=== PATIENT | female | born 1960 | race Caucasian/White ===

== ENCOUNTER 2019-07-27 10:47 | Day surgery (SDC) | payer MEDICARE, MEDICAID, SELFPAY ==
[2019-07-24 10:27] VITALS: BMI 51.7
--- NOTE | 2019-07-24 10:33 | P.ANESASSM_ITS ---
Pre-Anesthetic Assessment Pre-Anesthetic Assessment: Height/Weight: Height 1.52 m Weight 120.202 kg Preop Diagnosis: Chronic GERD associated with obesity Proposed Procedure: Operation Date: 07/27/19 12:40 Proposed Procedures p EGD 35982 K21.9(Not Applicable) - Khang Espinosa MD Social: Social History: No alcohol and No tobacco Exam: Pre-Anes Outpt Exam: alert, oriented x 3, clear to auscultation bilaterally and regular rate & rhythm Airway: Submandibular: WNL Cervical ROM: WNL MP: 2 Dentition: Full History/ROS: No significant history except as noted Pulmonary: Pulmonary: LEA CV/HEM: CV/HEM: HTN : : None reported Hepatic: Hepatic: None reported GI: GI: None reported Metabolic: Metabolic: Morbid obesity Musc/skel: Musc/skel: Lower Back Pain and OA/DJD Neuropsych: Neuropsych: Anxiety, Depression and None reported Anesthetic Plan: ASA status: 3 Anesthesia: Anesthesia Evaluation and MAC Risk of > 500 ml blood loss (7ml/kg in children): No PFSH Anesthesia PFSH: Medical History Chronic depressive personality disorder Depression Fibromyalgia GERD (gastroesophageal reflux disease) History of TIA (transient ischemic attack) Hypertension Obesity Osteoarthritis RAD (reactive airway disease) Surgical History History of bladder surgery History of cholecystectomy History of hysterectomy Family History Mother Hypertension Diabetes CAD (coronary artery disease) Cancer Throid Denies family history of Anesthesia complication Bleeding disorder Social History Smoking and tobacco status: never smoked Second hand smoke exposure: No Alcohol intake: never Adopted: No Caregiver/support person: Yes Lives independently: Yes Household members: none Housing: Apartment Marital status: Single Highest education level completed: High School Graduate service: No Current occupational status: disabled Current occupational exposures/hazards: No Pets and animals: No History of recent travel: No Sexually active: No Current gender identity: Female Funmilayo/Confucianism: Anglican Special funmilayo needs: No Agree to transfusion: No Financial difficulty paying for basics: Decline to Answer Data Anesthesia Cardiac Studies: No Data to Display
[2019-07-27 10:54] VITALS: BP 144/96; PULSE 98; RESP 20; TEMP 36.6; O2SAT 95
[2019-07-27] MEDS: sodium chloride 0.9% 1,000 ML 30 ML IV (10:54)
--- NOTE | 2019-07-27 11:29 | P.ANESUD_ITS ---
Pre-Anesthetic Update Pre-Anesthetic Assessment: Date of Surgery/Procedure: 07/27/19 Preop Isabel gnosis: Chronic GERD associated with obesity Proposed Procedure: Operation Date: 07/27/19 14:05 Proposed Procedures p EGD 82150 K21.9(Not Applicable) - Khang Espinosa MD Last Intake: Intake Last Liquid Date 07/26/19 Last Liquid Time 20:00 Vitals: Temperature 97.9 F 07/27/19 10:54 Temperature Source Temporal Artery S can 07/27/19 10:54 Pulse Rate 98 07/27/19 10:54 Respiratory Rate 20 H 07/27/19 10:54 Blood Pressure 144/96 07/27/19 10:54 Blood Pressure Re n 112 07/27/19 10:54 Pulse Oximetry 95 07/27/19 10:54 Oxygen Delivery Me thod 07/27/19 11:04 Exam: Pre-Anes Outpt Exam: alert, oriented x 3, clear to auscultation bilaterally and regular rate & rhythm Other Pertinent Information: Other Pertinent Information: no changes in health status Cardiac Studies: No Data to Display
--- NOTE | 2019-07-27 12:17 | PM.HPUD ---
H&P update H&P Update: DATE OF SURGERY/PROCEDURE: 07/27/19 DATE H&P PERFORMED: 07/09/19 H&P UPDATE INFORMATION: H&P completed within last 30 days and No changes to prior documentation PREOP DIAGNOSIS: Chronic GERD associated with obesity PRIMARY INDICATION FOR PROCEDURE: The same PLANNED PROCEDURE: Operation Date: 07/27/19 14:05 Proposed Procedures p EGD 99349 K21.9(Not Applicable) - hKang Espinosa MD Full H&P Perinent History: Medical/Surgical History: Medical History (Updated 07/11/19 @ 09:23 by Khang Espinosa MD) Chronic depressive personality disorder Depression Fibromyalgia GERD (gastroesophageal reflux disease) History of TIA (transient ischemic attack) Hypertension Obesity Osteoarthritis RAD (reactive airway disease) Family History: Family History (Updated 07/09/19 @ 11:24 by Sulema Montana RN) Mother Hypertension Diabetes CAD (coronary artery disease) Cancer Throid Denies family history of Anesthesia complication Bleeding disorder Social History: Social History Smoking and tobacco status: never smoked Second hand smoke exposure: No Alcohol intake: never Adopted: No Caregiver/support person: Yes Lives independently: Yes Household members: none Housing: Apartment Marital status: Single Highest education level completed: High School Graduate service: No Current occupational status: disabled Current occupational exposures/hazards: No Pets and animals: No History of recent travel: No Sexually active: No Current gender identity: Female Funmilayo/Yazdanism: Orthodoxy Special funmilayo needs: No Agree to transfusion: No Financial difficulty paying for basics: Decline to Answer
[2019-07-27 14:03] VITALS: BP 186/65; PULSE 89; RESP 18; TEMP 36.8; O2SAT 93
[2019-07-27 14:18] VITALS: BP 106/85; PULSE 94; RESP 18; TEMP 36.7; O2SAT 94
[2019-07-28 13:56] LABS: H. Pylori / CLO Test Negative
== END 2019-07-27 15:00 | disposition home or self-care (01) ==
PROVIDERS: Family Provider Family Medicine; PCP Family Medicine; Visit Provider Surgery
PROC: 0DJ08ZZ Inspection of Upper Intestinal Tract, Via Natural or Artificial Opening Endoscopic (ICD-10-PCS; CPT 43235; principal; 2019-07-27 13:55)
DX: K21.9 Gastro-esophageal reflux disease without esophagitis (principal); E66.01 Morbid (severe) obesity due to excess calories; K29.70 Gastritis, unspecified, without bleeding; I10 Essential (primary) hypertension; M19.90 Unspecified osteoarthritis, unspecified site; Z82.49 Family history of ischemic heart disease and other diseases of the circulatory system; Z83.3 Family history of diabetes mellitus
CPT/HCPCS: 43239; 12345; 87077; J7030

== ENCOUNTER 2019-10-05 11:48 | Outpatient (CLI) | payer MEDICARE, MEDICAID, SELFPAY ==
[2019-10-05 12:21] LABS: Basophils # 0.1 10^3/uL (0.0-0.1); Basophils % 0.8 %; Eosinophils # 0.1 10^3/uL (0.0-0.8); Eosinophils % 1.8 %; Hematocrit 46.3 % (37.0-47.0); Hemoglobin 15.2 g/dL (11.5-15.3); Lymphocytes # 2.5 10^3/uL (0.8-4.8); Lymphocytes % 32.2 %; Mean Corpuscular HGB Conc 32.8 g/dL (30.0-36.0); Mean Corpuscular Hemoglobin 29.8 pg (28.0-34.0); Mean Corpuscular Volume 90.8 fL (81-99); Mean Platelet Volume 9.9 fL (7.4-10.4); Monocytes # 0.6 10^3/uL (0.2-0.9); Monocytes % 7.6 %; Neutrophils # 4.4 10^3/uL (1.8-7.7); Neutrophils % 57.5 %; Nucleated Red Blood Cells % 0 %; Platelet Count 343 10^3/cmm (130-400); Red Cell Distribution Width 12.2 % (12.1-15.1); White Blood Count 7.6 10^3/uL (4.0-10.0)
[2019-10-05 12:41] LABS: INR 0.99 (0.8-1.2)
[2019-10-05 12:44] LABS: Estmated Average Glucose 100; Hemoglobin A1C 5.1 % (4.0-6.0)
[2019-10-05 12:58] LABS: Calcium 9.9 mg/dL (8.5-10.5); Parathyroid Hormone 49.9 pg/mL (15-65)
[2019-10-05 13:13] LABS: Alanine Aminotransferase 17 U/L (0-33); Albumin Level 4.4 g/dL (3.5-5.2); Alkaline Phosphatase 115 IU/L (35-105); Aspartate Amino Transferase 17 U/L (0-32); Blood Urea Nitrogen 29 mg/dL (8-23); Calcium 9.7 mg/dL (8.5-10.5); Carbon Dioxide 23 mmol/L (22-29); Chloride 98 mmol/L (98-107); Chol HDL Ratio 3.65 mg/dL (0.0-4.40); Cholesterol 201 mg/dL (0-200); Ferritin 81 ng/mL (15-150); Globulin 3.3 g/dL (1.3-4.6); Glomerular Filtration Rate 125.9 mL/min (90-130); Glucose 93 mg/dL (65-115); HDL Cholesterol 55 mg/dL (60-100); Iron 62 ug/dL (37-145); LDL Cholesterol Calculated 126 mg/dL (50-129); LDL HDL Ratio 2.29 RATIO (0.00-3.22); Magnesium 2.1 mg/dL (1.7-2.3); Osmolality Calculated 277 mOsm/kg (285-295); Percent Saturation 19.6 % (20-50); Phosphorus 3.8 mg/dL (2.5-4.5); Sodium 135 mmol/L (136-145); Thyroid Stimulating Hormone 2.78 uIU/mL (0.27-4.20); Total Bilirubin 0.5 mg/dL (0.15-1.2); Total Iron Binding Capacity 316 mcg/dl; Total Protein 7.7 g/dL (6.6-8.7); Triglycerides 101 mg/dL (0-150); Unsaturated Iron Binding 254 ug/dL (112-347); Vitamin B12 797 pg/mL (232-1245)
[2019-10-05 13:36] LABS: Folate Level > 20.0 ng/mL (4.8-37.3)
== END 2019-10-05 11:49 | disposition home or self-care (01) ==
LOC: LAB 11:49
PROVIDERS: Family Provider Family Medicine; PCP Family Medicine; Visit Provider Surgery
DX: E66.9 Obesity, unspecified (principal)
CPT/HCPCS: 36415; 80053; 80061; 82248; 82310; 82607; 82728; 82746; 83036; 83540; 83550; 83735; 83970; 84100; 84443; 85025; 85610

== ENCOUNTER 2019-12-01 09:00 | Inpatient (IN) | payer MEDICARE, MEDICAID, SELFPAY ==
[2019-11-30 09:53] VITALS: BMI 49.2
--- NOTE | 2019-11-30 10:10 | ANES.PREANE2 ---
Pre-Anesthetic Assessment Pre-Anesthetic Assessment: Height/Weight: Height 1.52 m Weight 114.305 kg Preop Diagnosis: Chronic GERD associated with obesity Proposed Procedure: Operation Date: 12/01/19 11:20 Proposed Procedures p Laparoscopic Gastric Sleeve w/ EGD [id number] 72130 E66.9(Not Applicable) - Khang Espinosa MD s EGD(Not Applicable) - Khang Espinosa MD Social: Social History: No alcohol and No tobacco Exam: Pre-Anes Outpt Exam: alert, oriented x 3, clear to auscultation bilaterally and regular rate & rhythm Airway: Submandibular: WNL Cervical ROM: WNL MP: 2 Dentition: False (upper and lower) History/ROS: No significant history except as noted Pulmonary: Pulmonary: None reported CV/HEM: CV/HEM: HTN : : None reported Hepatic: Hepatic: None reported GI: GI: None reported Metabolic: Metabolic: Morbid obesity Musc/skel: Musc/skel: Lower Back Pain and OA/DJD Neuropsych: Neuropsych: Anxiety, Depression and Neuropathy (bilat LE) Anesthetic Plan: ASA status: 3 Anesthesia: Anesthesia Evaluation and General Risk of > 500 ml blood loss (7ml/kg in children): No Other Pertinent Information: Severe PONV, Did ok with TIVA, Scop patch PFSH Anesthesia PFSH: Medical History Chronic depressive personality disorder Depression Fibromyalgia GERD (gastroesophageal reflux disease) History of TIA (transient ischemic attack) Hypertension Obesity Osteoarthritis RAD (reactive airway disease) Surgical History History of bladder surgery History of cholecystectomy History of hysterectomy Family History Mother Hypertension Diabetes CAD (coronary artery disease) Cancer Throid Denies family history of Anesthesia complication Bleeding disorder Social History Smoking and tobacco status: never smoked Second hand smoke exposure: No Alcohol intake: never Adopted: No Caregiver/support person: Yes Lives independently: Yes Household members: none Housing: Apartment Marital status: Single Highest education level completed: High School Graduate service: No Current occupational status: disabled Current occupational exposures/hazards: No Pets and animals: No History of recent travel: No Sexually active: No Current gender identity: Female Funmilayo/Pentecostal: Anabaptist Special funmilayo needs: No Agree to transfusion: No Financial difficulty paying for basics: Decline to Answer Data Anesthesia Cardiac Studies: No Data to Display
[2019-12-01] VITALS (25 sets, daily range): BP systolic 146–183; BP diastolic 67–110; PULSE 73–97; RESP 16–26; TEMP 36.1–36.9; O2SAT 92–100
--- NOTE | 2019-12-01 06:20 | W.PM.OPSUD ---
Surgery/Procedure H&P Update DATE OF PROCEDURE: December 01, 2019 DATE H&P PERFORMED: 07/09/19 H&P UPDATE INFORMATION: I have reviewed H&P completed within last 30 days, I have examined patient prior to procedure and No changes to prior documentation (Except that the patient lost 34 pounds prior to surgery she has been on liquid protein diet) PREOP DIAGNOSIS: Chronic GERD associated with obesity PRIMARY INDICATION FOR PROCEDURE: The same,morbid obesity with associated medical comorbidities. PLANNED PROCEDURE: Operation Date: 12/01/19 07:00 Proposed Procedures p Laparoscopic Gastric Sleeve w/ EGD 95796 22100 E66.9(Not Applicable) - Khang Espinosa MD s EGD(Not Applicable) - Khang Espinosa MD
[2019-12-01] MEDS: scopolamine 1.5 Patch 1 PATCH TRANSDERMA (06:24)
[2019-12-01] MEDS: ondansetron 2 mg/ML SDV 2 mL 4 MG IV (06:52)
[2019-12-01] MEDS: heparin 5,000 unit/mL INJ 1 mL 5000 UNIT SUBCUT ×2 (06:58→22:24)
[2019-12-01] MEDS: clindamycin 900 MG/50 ML PREMIX 100 MG IV (07:00)
--- NOTE | 2019-12-01 08:19 | SUR.OPER ---
Called and updated Radha on surgical progress.
--- NOTE | 2019-12-01 09:00 | SUR.OPER ---
called and updated Radha on surgical progress.
[2019-12-01] MEDS: lidocaine 2% INJ 20 mL INJECTION (09:02)
--- NOTE | 2019-12-01 09:11 | P.OP_ITS ---
Operative Report Date of procedure: December 01, 2019 Pre-op Diagnosis: Morbid obesity Post-op diagnosis: same Post-op Findings: Morbid obesity Procedure Done: Laparoscopic Vertical Sleeve Gastrectomy and intraoperative EGD Specimens removed/disposition: Sleeve gastrectomy Surgeon: Khang Espinosa R Developer: Surgical techsanjay Padgett Circulating nurses Laurie and Nicole Anesthesia: General (tool shaper set up operator Nataliia) Estimated blood loss (mL): 25 IV fluids (mL): 1,000 Urine output (mL): 200 Complications: No immediate complication Condition: stable Disposition: floor Brief History: This is a pleasant 59 years old female patient morbidly obese with associated multiple medical comorbidities, patient was referred to [facility] for potential evaluation for Bariatric surgery, patient undergone supervised medical weight loss and she met the criteria for medical necessity for laparoscopic vertical sleeve gastrectomy. Informed consent per chart Procedure: Patient was identified in holding area , appropriate pharmacologic DVT prophylaxis was given and preoperative IV fluid hydration, patient was then taken to the operating room where the patient was placed in supine position, intubated by anesthesia prophylactic antibiotics were given per protocol,Time- out was done verifying the patient's name/date of /planned procedure and destination after the procedure, all were in agreement. SCDs confirmed to be functioning, and beta uzair protocol was confirmed. A Jackson catheter was inserted by the circulating nurse revealing clear urine. A foot board was applied to secure the patient while the patient is placed in reversed Trendelenburg, all pressure points were padded, and the patient was appropriately secured to the table, anesthesia was asked to rotate the table back and forth to verify that the patient is appropriately secured, and that was the case. The abdomen was prepped and draped under the usual sterile technique. A 1 cm transverse incision was made with a 15 blade scalpel approximately 15 cm below the xiphoid process and 3 cm left of the midline. A 12 mm optical trocar port was placed under direct vision into the peritoneal cavity without evidence of injury to peritoneal structures upon entry. The peritoneal cavity was insufflated with carbon dioxide gas up to 15 mmHg pressure. A 45? angle laparoscopy was placed through the port into the peritoneal cavity there was no significant blood, fluid, or evidence of intra-abdominal injury under direct visualization,long 5 mm trocar port was placed in the left lateral flank and additional 5 mm trocar was inserted midway between the left lateral flank trocar and the initial 12 mm trocar , Then a 12 mm trocar port was placed in the right epigastric region and a fourth 5 mm trocar port was placed in the mid epigastric region more caudad than and medial to the previous port. I lifted the omentum up to make sure there were no injuries encountered from the initial trocar insertion , and there was not. A subxiphoid stab incision was made and dissection into the peritoneum with 5 mm obturator.A grasping laparoscopic clamp was inserted through here and clamped to the right javier of the diaphragm to elevate The liver for the entirety of the case. Patient was then placed in the reversed Trendelenburg Following this, the greater curvature of the stomach was freed from the omentum using the harmonic scalpel. This division included the short gastric vessels proximally. This dissection was carried from approximately 4 cm-6 cm proximal to the pylorus and extending all the way up to the angle of Hiss. During this process the posterior aspect of the stomach was mobilized from the underlying peritoneum and the posterior aspect of the stomach was well exposed. With the greater curvature of the stomach exposed from within 4-6 cm of the pylorus and extending to the angle of Hiss, which also included the posterior stomach, a 40 Grenadian standard template passed under direct vision down the es ophagus, stomach, and into the first part of the duodenum by the anesthesia provider and under direct guidance and visualization by me,via the laparoscopy. Using the template 40 Grenadian aligned along the lesser curvature of the stomach and all the way to the first part of the Duodenum,the 40 Grenadian Bougie was used as a template the laparoscopic vertical gastric sleeve was performed starting from a point about 5 cm from the pylorus along the greater curvature. Using the [place] Laparoscopic MELINA linear cutting stapler with Seam guarded enforcement, a series of williams were used to transect the stomach in a vertical fashion along the left side of the template., Care was taken not to narrow the angularis. Through the entire division of the stomach using the staplers,the template was always checked to be in good place and well aligned to the lesser curvature while dividing the stomach. This was carried all the way to the angle of Hiss.Green loads were used for all stapler loads. The staple line along the remaining tubularized stomach was tested for leaks and bleeding under direct vision as the 40 Grenadian template was removed (and there was no evidence of blood on the tip of the template) by a standard diagnostic EGD via the mouth by me after I scrubbed out , insufflation was achieved and the staple line submerged under saline, meanwhile a clamp was applied distally onto the end of the tubularized stomach to allow insufflation test for leak the clamp was held in place by my surgical aides teacher. There was no evidence of leak .There was adequate hemostasis along the staple line.EGD was taken out at this point after deflation of the tubularized stomach. At that point I scrubbed back in; The transected partial stomach, which included the greater curvature, was removed from the peritoneum through the first 12 mm trocar site, and was sent for permanent pathology Prior to closure of the fascia. A final look laparoscopy identified no injuries and another look towards the superior pole of the spleen was done and there was no further bleeding and I elected to keep the large piece of Surgicel in place. An interrupted 0 PDS suture on a granny needle suture passer was used to close the right epigastric and the other 12 mm trocar left of the midline fascial defects under direct visualization. The other trocars were removed under direct vision and no evidence of bleeding was identified. The pneumoperitoneum was decompressed. All skin incisions were irrigated with saline, then closed with williams, followed by application of sterile dressings. The patient was extubated and transferred to the recovery room with normal vital signs. All counts of instruments and sponges and needles were completed at the end of the procedure I was present for the whole entire procedure
--- NOTE | 2019-12-01 09:30 | SUR.PHASEI ---
6188 PATIENT TO PACU AT THIS TIME FROM OR. NO DISTRESS. RR EVEN AND UNLABORED, SPO2 100% ON SIMPLE MASK AT 8L. 6 INCISIONS TO ABDOMEN, CDI COVERED WITH BANDAIDS.
[2019-12-01] MEDS: fentaNYL 50 mcg/mL INJ 2mL IVP ×2 (09:45→10:01)
--- NOTE | 2019-12-01 10:27 | SUR.PHASEI ---
1017 PATIENT TO MED SURG. PAIN AND NAUSEA IMPROVED. 6 INCISIONS TO ABDOMEN, CDI.
[2019-12-01] MEDS: morphine 4 mg/mL SDV 1 mL 2 MG IVP ×3 (11:47→22:24)
[2019-12-01] MEDS: ondansetron 2 mg/ML SDV 2 mL 4 MG IVP ×2 (11:47→18:41)
--- NOTE | 2019-12-01 12:09 | PC.CHAP ---
Pastoral Care Encounter/Spiritual Assessment Type of Contact [] Declined header set up operator visit [] Patient/Family/Request visit [] Outpatient visit [] Follow-up visit [] Physician referral [] Code/Alert [X] Routine visit [] Staff referral [] Actively dying [] Patient sleeping [] Family support [] [] Out of room [] Palliative care [] [X] Receiving care in room [] Pre-surgical visit [] Trauma [] Long length of stay [] ICU visit [] Other: Relational/Emotional Strength [x] Patient feels connected with others/family/visitors/staff [] Distress [] Loneliness/isolation [] Abandonment Spirituality of Patient [x] Person of Funmilayo [] Attends Christian of their Funmilayo [x] Believes in Prayer [] Reads Bible or Moravian materials [] There are Spiritual issues to be addressed Frog Catcher Interventions [x] Prayer [] Active listening [] Non-anxious presence [] Spiritual/emotional support [] Crisis/trauma care [] Spiritual counseling [] Bereavement support [] Provided bereavement packet [] Provided Bible/devotional materials [] Provided toy/stuffed animal, coloring book to patient or family member [] Provided Communion [] Anointing/[place] [] Salvation [x] Completed spiritual assessment [] Other: Impact on Illness or Injury [] Angry [x] Fearful [x] Anxious [] Often cries [] Exhaustion [] Unable to work [] Unable to attend restoration [] Unable to walk/stand [] Unable to read [] Unable to drive [] Unable to eat/drink [] Unable to sleep [] Unable to be with family [] Patient intubated [] Other: Summary obesty, in pain, unable to communicate Time spent with patient 10mins
[2019-12-01] MEDS: sodium chloride 0.9% 1,000 ML 125 ML IV ×2 (13:02→20:53)
--- NOTE | 2019-12-01 18:03 | NUR.SHIFT ---
SHIFT SUMMARY PATIENT HAS DONE WELL SINCE ARRIVING TO THE FLOOR FROM THE OR. PATIENT'S PAIN IS CONTROLLED WELL HER NAUSEA. PATIENT HAS HAD 1300ML OF URINE OUTPUT. USING INCENTIVE SPIROMETER WELL. PATIENT SAT IN THE CHAIR FOR AROUND 3 HOURS AND AMBULATED NURSING HOME TO THE DOOR AND BACK. CURRENTLY RESTING IN BED. NO COMPLAINTS AT THIS TIME.
--- NOTE | 2019-12-01 22:17 | PC.NURSE ---
Ambulation Patient complaining of back pain, ambulated to the door and back using a cane with moderate assist. Now complaining of abdominal pain at 8/10. Sitting in a chair states it makes her back feel better. Going to give morphine at this time.
[2019-12-02] VITALS (7 sets, daily range): BP systolic 125–164; BP diastolic 73–84; PULSE 69–92; RESP 18–22; TEMP 36.5–37.5; O2SAT 92–98
[2019-12-02 03:12] LABS: Hematocrit 42.6 % (37.0-47.0); Hemoglobin 13.6 g/dL (11.5-15.3)
[2019-12-02 03:59] LABS: Anion Gap 15.9 (5-19); Blood Urea Nitrogen 10 mg/dL (8-23); Calcium 8.7 mg/dL (8.5-10.5); Carbon Dioxide 24 mmol/L (22-29); Chloride 101 mmol/L (98-107); Glomerular Filtration Rate 125.9 mL/min (90-130); Glucose 118 mg/dL (65-115); Osmolality Calculated 281 mOsm/kg (285-295); Potassium 3.9 mmol/L (3.5-5.1); Sodium 137 mmol/L (136-145)
[2019-12-02] MEDS: sodium chloride 0.9% 1,000 ML 125 ML IV ×2 (05:40→13:48)
--- NOTE | 2019-12-02 06:09 | P.PN_ITS ---
Subjective Subjective: Interval history: Patient overall doing well and had good urine output No acute events overnight Vitals/I&O/Wt Last Vital Signs Temp 98.1 F 12/02/19 04:00 Pulse 90 12/02/19 04:00 Resp 20 H 12/02/19 04:00 BP 157/78 12/02/19 04:00 Pulse Ox 93 12/02/19 04:00 12/01/19 12/01/19 12/02/19 14:59 22:59 06:59 Intake Total 1150 / 1150 1081.25 / 2231.25 1000 / 3231.25 Output Total 425 / 425 1700 / 2125 400 / 2525 Balance 725 / 725 -618.75 / 106.25 600 / 706.25 Weight last 48 hrs Weight 252 lb Physical Exam Narrative: EXAM NARRATIVE: Patient is conscious alert oriented X3 BMI 49 Head and neck examination PERRLA no masses no cervical lymphadenopathy no jaundice Cardiac examination audible S1-S2 no murmurs no gallops no arrhythmias Chest is clear bilateral,abscence of Rhonchi or wheezes,no surgical emphysema Abdomen nontender except slightly at the incision site nondistended soft no organomegaly guarding or rigidity/no signs of peritonitis Dressing is dry Extremities no cyanosis no clubbing no edema Urinary Catheter Management^: Jackson: Cath Placed During This Visit: yes Reason for Continuing Indwelling Catheter: Perioperative Use in Selected Surgeries Urinary Catheter Date of Insertion: 12/01/19 Urinary Catheter Time of Insertion: 07:15 Data : 12/02/19 02:43 12/02/19 02:43 A&P Assessment and plan (1) S/P laparoscopic sleeve gastrectomy: Postoperative day 1 for laparoscopic vertical gastric sleeve Encourage ambulation We will consult physical therapy for evaluation and to plan for discharge with coordination with case management We will follow on upper GI study today, once it is clear we will start the patient on clear liquid diet Nutrition service on board GA Jackson catheter Assurance and education All questions have been answered and all concerns have been addressed to patient's satisfaction. Evening rounds Upper GI study showed Patient swallowed the Gastrografin without difficulty. There is no delay in contrast emptying into the stomach to the gastric sleeve. Normal appearance of the gastric sleeve with no extravasation. FL/FL upper GI gastrografin [id number] IMPRESSION: Satisfactory postop gastric sleeve Gastrografin examination. clear liquid diet slow A.m. labs Status: Acute Attestations Medical Necessity Statement*: Medical necessity care is expected to cross 2 midnights Time Spent in Patient Care: 16 - 35 minutes (>than 50% of time spent in counselling and/or direct pt care on unit) . Coding Level of Care Code Acute Ring Rolling Machine Operator for Chg Fwd Diagnoses S/P laparoscopic sleeve gastrectomy Z98.84
--- NOTE | 2019-12-02 08:00 | FL_ITS ---
WS: [id number] Limited upper GI examination. HISTORY: Status post gastric sleeve. Fluoroscopy time: 0.4 minutes. Patient swallowed the Gastrografin without difficulty. There is no delay in contrast emptying into th e stomach to the gastric sleeve. Normal appearance of the gastric sleeve with no extravasation. FL/FL upper GI gastrografin [id number] IMPRESSION: Satisfactory postop gastric sleeve Gastrografin examination.
--- NOTE | 2019-12-02 08:19 | ANE.PACU2 ---
Inpatient post-anesthesia follow up: Airway intact: Yes Vital signs: Temperature 99.0 F Pulse Rate 69 Respiratory Rate 22 Blood Pressure 164/79 Pulse Oximetry 98 Oxygen Delivery Me thod Nasal Cannula Oxygen Flow Rate 2 Fraction of Inspir ed Oxygen Hydration adequate: Yes Nausea and vomiting: No Pain level: 4 Mental status: Baseline
[2019-12-02] MEDS: ondansetron 2 mg/ML SDV 2 mL 4 MG IVP ×2 (08:33→20:12)
[2019-12-02] MEDS: heparin 5,000 unit/mL INJ 1 mL 5000 UNIT SUBCUT ×2 (08:37→15:46)
--- NOTE | 2019-12-02 09:07 | PC.NUTR ---
NUTR CONSULT: Consult received for post bariatric sleeve op. Spoke with pt, reported some soreness, no BM yet, waiting results from swallow study to advance diet. Provided PROsource jello to assist with meeting fluid/pro needs. Discussed diet progression after discharge. Will f/u in 1 week out pt. Pt reported 35 lbs prior to surgery.
[2019-12-02] MEDS: diatrizoate meglumine 120 mL Sol PO (09:46)
--- NOTE | 2019-12-02 10:03 | PC.CHAP ---
Pastoral Care Encounter/Spiritual Assessment Type of Contact [] Declined service operator visit [] Patient/Family/Request visit [] Outpatient visit [] Follow-up visit [] Physician referral [] Code/Alert [x] Routine visit [] Staff referral [] Actively dying [] Patient sleeping [] Family support [] [x] Out of room [] Palliative care [] [] Receiving care in room [] Pre-surgical visit [] Trauma [] Long length of stay [] ICU visit [x] Other: out for testing Relational/Emotional Strength [] Patient feels connected with others/family/visitors/staff [] Distress [] Loneliness/isolation [] Abandonment Spirituality of Patient [] Person of Funmilayo [] Attends Restorationist of their Funmilayo [] Believes in Prayer [] Reads Bible or Latter Day materials [] There are Spiritual issues to be addressed Corporate Librarian Interventions [] Prayer [] Active listening [] Non-anxious presence [] Spiritual/emotional support [] Crisis/trauma care [] Spiritual counseling [] Bereavement support [] Provided bereavement packet [] Provided Bible/devotional materials [] Provided toy/stuffed animal, coloring book to patient or family member [] Provided Communion [] Anointing/[place] [] Salvation [x] Completed spiritual assessment [] Other: Impact on Illness or Injury [] Angry [] Fearful [] Anxious [] Often cries [] Exhaustion [] Unable to work [] Unable to attend cheondoism [] Unable to walk/stand [] Unable to read [] Unable to drive [] Unable to eat/drink [] Unable to sleep [] Unable to be with family [] Patient intubated [] Other: Summary Time spent with patient
[2019-12-02] MEDS: sodium chloride 0.9% 1,000 ML 75 ML IV (20:13)
[2019-12-02] MEDS: metoclopramide 5 mg/mL SDV 2 mL IVP (22:21)
[2019-12-03] MEDS: heparin 5,000 unit/mL INJ 1 mL 5000 UNIT SUBCUT ×2 (00:27→09:02)
[2019-12-03 03:00] LABS: Hematocrit 39.6 % (37.0-47.0); Hemoglobin 12.5 g/dL (11.5-15.3)
[2019-12-03 03:14] LABS: Anion Gap 15.6 (5-19); Blood Urea Nitrogen 9 mg/dL (8-23); Calcium 8.4 mg/dL (8.5-10.5); Carbon Dioxide 24 mmol/L (22-29); Chloride 98 mmol/L (98-107); Glomerular Filtration Rate 162.8 mL/min (90-130); Glucose 107 mg/dL (65-115); Osmolality Calculated 274 mOsm/kg (285-295); Potassium 3.6 mmol/L (3.5-5.1); Sodium 134 mmol/L (136-145)
[2019-12-03 03:54] VITALS: BP 139/81; PULSE 75; RESP 20; TEMP 36.8; O2SAT 93
--- NOTE | 2019-12-03 05:50 | P.PN_ITS ---
Subjective Subjective: Interval history: Patient overall did well overnight and had an upper GI study that showed appropriate surgical anatomy status post gastric sleeve. Tolerating p.o. intake having good urine output Vitals/I&O/Wt Last Vital Signs Temp 98.3 F 12/03/19 03:54 Pulse 75 12/03/19 03:54 Resp 20 H 12/03/19 03:54 BP 139/81 12/03/19 03:54 Pulse Ox 93 12/03/19 03:54 12/02/19 12/02/19 12/03/19 14:59 22:59 06:59 Intake Total 1340 / 1340 1172.917 / 2512.917 440 / 2952.917 Output Total 500 / 500 1100 / 1600 Balance 1340 / 1340 672.917 / 2012.917 -660 / 1352.917 Physical Exam Narrative: EXAM NARRATIVE: Patient is conscious alert oriented X3 BMI 49 Head and neck examination PERRLA no masses no cervical lymphadenopathy no jaundice Cardiac examination audible S1-S2 no murmurs no gallops no arrhythmias Chest is clear bilateral,abscence of Rhonchi or wheezes,no surgical emphysema Abdomen nontender nondistended soft no organomegaly guarding or rigidity/no signs of peritonitis/incisions are clean dry and intact and skin williams in place Extremities no cyanosis no clubbing no edema Urinary Catheter Management^: Jackson: Cath Placed During This Visit: yes, but has since been removed by the nurse Reason for Continuing Indwelling Catheter: Decision to DC Catheter Urinary Catheter Date of Insertion: 12/01/19 Urinary Catheter Time of Insertion: 07:15 Date Urinary Catheter Removed: 12/02/19 Time Urinary Catheter Discontinued: 06:20 Data : 12/03/19 02:43 12/03/19 02:43 A&P Assessment and plan (1) S/P laparoscopic sleeve gastrectomy: Postoperative day 2 for laparoscopic vertical gastric sleeve Encourage ambulation Continue clear liquid diet Nutrition service on board We will plan to discharge patient home today with coordination with our case management for home health to check on the patient on daily basis Return to Bariatric surgery office in 1 week. Assurance and education All questions have been answered and all concerns have been addressed to patient's satisfaction. A.m. labs Status: Acute Attestations Medical Necessity Statement*: Medical necessity care is expected to cross 2 midnights Time Spent in Patient Care: 16 - 35 minutes (>than 50% of time spent in counselling and/or direct pt care on unit) . Coding Level of Care Code Acute Hybrid Corn Breeder for Chg Fwd Diagnoses S/P laparoscopic sleeve gastrectomy Z98.84
[2019-12-03 08:00] VITALS: BP 145/84; PULSE 70; RESP 16; TEMP 36.4; O2SAT 97
--- NOTE | 2019-12-03 11:15 | PM.DCS ---
Discharge Providers Date of Admission: 12/01/19 09:00 Date of Discharge: December 03, 2019 Attending Provider at Admission: Khang Espinosa MD Attending Provider at Discharge: Khang Espinosa MD Primary Care Provider: Emily Bucio DO Diagnoses at Discharge Discharge Diagnosis (1) S/P laparoscopic sleeve gastrectomy: Status: Acute Reason for Visit Reason for Visit: obesity Hospital Course Discharge Summary: This is a pleasant 59 years old female patient undergone uneventful laparoscopic vertical sleeve gastrectomy day before yesterday and she has been doing well undergone an upper GI study after surgery that showed appropriate surgical anatomy without leak or stricture, patient overall did well tolerates p.o. intake and has good urine output and passing gas. And patient continued to be on pharmacologic DVT prophylaxis throughout her entire hospital stay. Has been evaluated by physical therapy and has been ambulating with her cane appropriately. Did have physical therapy and case management to evaluate the patient and patient will have home health to come out for nursing visit and physical therapy Three times a week. Patient is doing appropriately well and she will be discharged home today with the plan of care. I will also plan to send the patient on Lovenox 40 mg subcutaneous daily for 10 days due to her limited mobility to prevent potential DVT. Physical Exam Narrative: EXAM NARRATIVE: Patient is conscious alert oriented X3 BMI 49 Head and neck examination PERRLA no masses no cervical lymphadenopathy no jaundice Cardiac examination audible S1-S2 no murmurs no gallops no arrhythmias Chest is clear bilateral,abscence of Rhonchi or wheezes,no surgical emphysema Abdomen nontender nondistended soft no organomegaly guarding or rigidity/no signs of peritonitis/incisions are clean dry and intact and skin williams in place Extremities no cyanosis no clubbing no edema Urinary Catheter Management^: Jackson: Cath Placed During This Visit: yes, but has since been removed by the nurse Reason for Continuing Indwelling Catheter: Decision to DC Catheter Urinary Catheter Date of Insertion: 12/01/19 Urinary Catheter Time of Insertion: 07:15 Date Urinary Catheter Removed: 12/02/19 Time Urinary Catheter Discontinued: 06:20 Discharge Data Data Completed and Pending: Completed Studies During Hospitalization Category Date Time Status [place] upper GI gastr ografin [id number] Rout ine Exams 12/02/19 08:00 Completed Pathology: Surgic al [PTH] Routine Pth 12/01/19 09:07 Completed Pending at discharge Category Date Time Status ES surgery / GI i mages Routine Exams 12/01/19 06:37 Taken Labs from last 24 hours 12/03/19 12/03/19 02:43 02:43 Hgb 12.5 Hct 39.6 Sodium 134 L Potassium 3.6 Chloride 98 Carbon Dioxide 24 Anion Gap 15.6 BUN 9 Creatinine 0.4 L GFR Calculation 162.8 H Glucose 107 Calculated Osmolal ity 274 L Calcium 8.4 L Vitals: Last Vital Signs Temp 97.6 F 12/03/19 08:00 Pulse 70 12/03/19 08:00 Resp 16 12/03/19 08:00 BP 145/84 12/03/19 08:00 Pulse Ox 97 12/03/19 08:00 Discharge Plan Discharge Patient Disposition: Home Health Service Condition: Stable Prescriptions: [place] 5-325 mg tablet 1 tab PO Q6H PRN (Reason: pain) Qty: 28 RF: 0 enoxaparin 40 mg/0.4 mL syringe 40 mg SUBCUT DAILY 10 Days Qty: 0.4 RF: 0 scopolamine base 1 mg over 3 days patch 3 day 1 patch TRANSDERMA Q3D PRN (Reason: nausea and vomiting) 12 Days Qty: 4 RF: 0 Pepcid AC 20 mg tablet 20 mg PO DAILY 30 Days Qty: 30 RF: 2 Continued Myrbetriq 50 mg tablet extended release 24 hr 50 mg PO Q24H MDD 50 RF: 0 nitroglycerin [Nitrostat] 0.4 mg tablet, sublingual 0.4 mg SUBLINGUAL Q5M MDD 0.4 PRN (Reason: Angina) RF: 0 duloxetine 30 mg capsule,delayed release(DR/EC) 30 mg PO BID RF: 0 gabapentin 800 mg tablet 800 mg PO TID RF: 0 aripiprazole 5 mg tablet 5 mg PO QDAY RF: 0 montelukast 10 mg tablet 10 mg PO QDAY RF: 0 isosorbide mononitrate 60 mg tablet extended release 24 hr 60 mg PO QAM 90 Days Qty: 90 RF: 3 metoprolol succinate 25 mg tablet extended release 24 hr 12.5 mg PO DAILY Qty: 45 RF: 3 cholecalciferol (vitamin D3) [Vitamin D3] 25 mcg (1,000 unit) Capsule 1,000 unit PO DAILY RF: 0 Held aspirin [Adult Low Dose Aspirin] 81 mg tablet,delayed release (DR/EC) 81 mg PO QDAY RF: 0 Hold Instructions: Resume on 12/08/19. Discontinued diclofenac sodium 1 % gel 2 gm TOPICAL QID PRN (Reason: Pain) RF: 0 Discharge Orders: Discharge Order (Routine); Ordered 12/03/19 Ordered By: Khang Espinosa Referrals: Khang Espinosa MD [Physician] - (Return to bariatric surgery office in 1 week.) Discharge Diet: As Directed Patient Instructions: Scopolamine (Absorbed through the skin), Famotidine (By mouth), Hydrocodone/Acetaminophen (By mouth), Enoxaparin (Injection) Activity Restrictions/Additional Instructions: 1. Patient can shower after 48 hours from surgery 2. Remove Dermabond 7 to 10 days after surgery, if there is a secondary dressing can take down after 48 hours. 3. Up and walking as tolerated 4. Do lift more than 5 pounds first 2 weeks after surgery and not more than 25 pounds 6 to 8 weeks after surgery. 5. Do not operate heavy machinery or drive while using pain medications. 6.Contact the office or return to the ER for worsening nausea vomiting fevers or chills, or noticing any redness around incision sites or discharge. 7. Patient on clear liquid comes back and see me at the bariatric surgery office in 1 week Please follow dental laboratory technician recommendations and education with regard to patient's nutrition postoperatively Discharge Attestations Time Spent in Discharge Care*: greater than 30 min Specific Discharge Activities: Specific discharge activities: educating patient Status at Discharge: Cognitive status at discharge: cognitively intact, Behavioral status at discharge: cooperative, Functional status at discharge: uses cane/walker Overall status at discharge: patient is progressing back to baseline Quality Metrics Clinical Quality Measures During this hospital stay, did patient experience: None Coding Level of Care Code Acute Personal Financial Planner for Chg Fwd Diagnoses S/P laparoscopic sleeve gastrectomy Z98.84
[2019-12-03 12:00] VITALS: BP 139/82; PULSE 75; RESP 16; TEMP 36.8; O2SAT 96
[2019-12-03 14:17] VITALS: BP 139/82; PULSE 75; RESP 16; TEMP 36.8; O2SAT 96
== END 2019-12-03 14:18 | disposition home health service (06) | DRG 621 ==
LOC: MEDSURG 12-02 09:00
PROVIDERS: Admitting Provider Surgery; PCP Family Medicine; Visit Provider Surgery
PROC: 0DB64Z3 Excision of Stomach, Percutaneous Endoscopic Approach, Vertical (ICD-10-PCS; CPT 43775; principal; 2019-12-01 07:00)
PROC: 0DJ08ZZ Inspection of Upper Intestinal Tract, Via Natural or Artificial Opening Endoscopic (ICD-10-PCS; CPT 43235; 2019-12-01 07:00)
DX: E66.01 Morbid (severe) obesity due to excess calories (principal); Z68.42 Body mass index [BMI] 45.0-49.9, adult; Z79.82 Long term (current) use of aspirin; F34.1 Dysthymic disorder; F32.9 Major depressive disorder, single episode, unspecified; M79.7 Fibromyalgia; K21.9 Gastro-esophageal reflux disease without esophagitis; Z86.73 Personal history of transient ischemic attack (TIA), and cerebral infarction without residual deficits; I10 Essential (primary) hypertension; M19.90 Unspecified osteoarthritis, unspecified site; J45.909 Unspecified asthma, uncomplicated
CPT/HCPCS: 12345; 36415; 43235; 51702; 74240; 80048; 85014; 85018; 88309; 96372; 96374; 96375; 97116; 97161; J0131; J0360; J1644; J2001; J2270; J2405; J2704; J2710; J2765; J3010; J3490; J7030; Q9963

== ENCOUNTER 2020-02-23 08:32 | Outpatient (CLI) | payer MEDICARE, MEDICAID, SELFPAY ==
[2020-02-23 09:18] LABS: Basophils # 0.1 10^3/uL (0.0-0.1); Basophils % 1.3 %; Eosinophils # 0.2 10^3/uL (0.0-0.8); Eosinophils % 2.9 %; Hematocrit 44.7 % (37.0-47.0); Hemoglobin 14.2 g/dL (11.5-15.3); Lymphocytes # 2.2 10^3/uL (0.8-4.8); Lymphocytes % 35.3 %; Mean Corpuscular HGB Conc 31.8 g/dL (30.0-36.0); Mean Corpuscular Hemoglobin 28.9 pg (28.0-34.0); Mean Corpuscular Volume 90.9 fL (81-99); Mean Platelet Volume 9.9 fL (7.4-10.4); Monocytes # 0.5 10^3/uL (0.2-0.9); Monocytes % 8.3 %; Neutrophils # 3.18 10^3/uL (1.8-7.7); Nucleated Red Blood Cells % 0 %; Platelet Count 318 10^3/cmm (130-400); Red Blood Count 4.92 10^6/uL (4.1-5.3); Red Cell Distribution Width 12.9 % (12.1-15.1); White Blood Count 6.1 10^3/uL (4.0-10.0)
[2020-02-23 09:39] LABS: Estmated Average Glucose 100; Hemoglobin A1C 5.1 % (4.0-6.0)
[2020-02-23 09:44] LABS: Calcium 9.4 mg/dL (8.5-10.5); Parathyroid Hormone 43.7 pg/mL (15-65)
[2020-02-23 09:55] LABS: Alanine Aminotransferase 14 U/L (0-33); Albumin Level 4.1 g/dL (3.5-5.2); Alkaline Phosphatase 126 IU/L (35-105); Anion Gap 12.1 (5-19); Aspartate Amino Transferase 15 U/L (0-32); Blood Urea Nitrogen 17 mg/dL (8-23); Calcium 8.9 mg/dL (8.5-10.5); Carbon Dioxide 29 mmol/L (22-29); Chloride 98 mmol/L (98-107); Chol HDL Ratio 3.14 mg/dL (0.0-4.40); Cholesterol 185 mg/dL (0-200); Ferritin 118 ng/mL (15-150); Globulin 2.9 g/dL (1.3-4.6); Glucose 95 mg/dL (65-115); HDL Cholesterol 59 mg/dL (60-100); Iron 79 ug/dL (37-145); LDL Cholesterol Calculated 101 mg/dL (50-129); LDL HDL Ratio 1.71 RATIO (0.00-3.22); Magnesium 2.1 mg/dL (1.7-2.3); Osmolality Calculated 276 mOsm/kg (285-295); Percent Saturation 29.5 % (20-50); Phosphorus 3.4 mg/dL (2.5-4.5); Potassium 4.1 mmol/L (3.5-5.1); Sodium 135 mmol/L (136-145); Thyroid Stimulating Hormone 3.79 uIU/mL (0.27-4.20); Total Bilirubin 0.5 mg/dL (0.15-1.2); Total Iron Binding Capacity 267 mcg/dl; Triglycerides 124 mg/dL (0-150); Unsaturated Iron Binding 188 ug/dL (112-347); Vitamin B12 776 pg/mL (232-1245)
[2020-02-23 10:29] LABS: Folate Level > 20.0 ng/mL (4.8-37.3)
== END 2020-02-23 08:33 | disposition home or self-care (01) ==
LOC: LAB 08:40
PROVIDERS: PCP Family Medicine; Visit Provider Surgery
DX: E88.81 Metabolic syndrome and other insulin resistance (principal)
CPT/HCPCS: 80053; 80061; 82310; 82607; 82728; 82746; 83036; 83540; 83550; 83735; 83970; 84100; 84443; 85025

== ENCOUNTER 2023-12-14 18:23 | Emergency (ER) | payer MEDICARE, MEDICAID, SELFPAY ==
--- NOTE | 2023-12-14 18:23 | XRR_ITS ---
PROCEDURE INFORMATION: Exam: XR Left Hand Exam date and time: 12/14/2023 6:39 PM Age: 63 years old Clinical indication: Injury or trauma; Other: Pinning injury; Crushing; Left; Prior surgery; Surgery date: 6+ months; Surgery type: Carpal tunnel; Patient HX: Lt hand/wrist pain post pinning acciedent TECHNIQUE: Imaging protocol: Radiologic exam of the left hand. Views: 3 or more views. COMPARISON: CR (UP EX, ) 12/14/2023 6:39 PM FINDINGS: Bones/joints: Dislocation at the base of the thumb with a small avulsion fracture measuring 3 mm. Soft tissues: Normal. XR/XR hand LT min 3V* [id number] IMPRESSION: Dislocation at the base of the thumb with a small avulsion fracture.
[2023-12-14 18:24] VITALS: BP 144/85; PULSE 84; RESP 18; TEMP 36.8; O2SAT 98; BMI 53.8
--- NOTE | 2023-12-14 18:25 | XRR_ITS ---
PROCEDURE INFORMATION: Exam: XR Left Wrist Exam date and time: 12/14/2023 6:39 PM Age: 63 years old Clinical indication: Injury or trauma; Other: Pinning injury; Crushing; Left; Patient HX: Lt hand/wrist pain post pinning acciedent TECHNIQUE: Imaging protocol: Radiologic exam of the left wrist. Views: 3 or more views. COMPARISON: CR ( EX, ) 12/14/2023 6:39 PM FINDINGS: Bones/joints: Redemonstrated dislocation at the base of the thumb with small avulsion fracture. No wrist fracture. Soft tissues: Normal. XR/XR wrist LT min 3V* [id number] IMPRESSION: Redemonstrated dislocation of the base of the thumb with small avulsion fracture.
--- NOTE | 2023-12-14 18:34 | ED_ITS ---
HPI - Extremity Problem General: Chief complaint: Extremity Injury, Upper Stated complaint: LEFT HAND PAIN Time Seen by Provider: 12/14/23 18:23 Source: patient Mode of arrival: ambulatory Limitations: no limitations History of Present Illness: 63-year-old female states that she had c ut her left hand in between her wheelchair and her regular chair and has pain to left hand and left wrist. She states this happened yesterday morning but has had increasing pain and bruising. Denies any worsening improving factors. Associated symptoms: Deny chest pain, fever(s) or rash Review of Systems Const: Denies: fever(s), chills, body aches or change in appetite ENMT: Denies: throat pain or dental pain Card: Denies: chest pain Resp: Denies: dyspnea GI: Denies: abdominal pain, nausea, vomiting or diarrhea Musc: Reports: extremity pain; Denies: neck pain or back pain Skin/Breast: Denies: rash Neuro: Denies: headache(s) PFSH ED PFSH: Medical History (Updated 12/14/23 @ 20:52 by Judd Souza MD) Hypertension Fibromyalgia Osteoarthritis RAD (reactive airway disease) GERD (gastroesophageal reflux disease) Depression Chronic depressive personality disorder Obesity History of TIA (transient ischemic attack) Surgical History S/P laparoscopic sleeve gastrectomy History of bladder surgery History of hysterectomy History of cholecystectomy Family History Mother Hypertension Diabetes CAD (coronary artery disease) Cancer Throid Denies family history of Anesthesia complication Bleeding disorder Social History Smoking and tobacco/nicotine status: never used tobacco/nicotine Second hand smoke exposure: No Alcohol intake: never Substance/Drug Use: never Adopted: No Caregiver/support person: Yes Lives independently: Yes Household members: none Housing: Apartment Marital status: Single Highest education level completed: High School Graduate service: No Current occupational status: disabled Current occupational exposures/hazards: No Pets and animals: No Sexually active: No Do you think of yourself as: Straight/Heterosexual Current gender identity: Female Funmilayo/Moravian: Yarsani Special funmilayo needs: No Agree to transfusion: No Physical Exam Const: COMMON NORMALS: no acute distress, patient oriented x3 and healthy appearing HENMT: COMMON NORMALS: normocephalic and atraumatic HEAD & SCALP: n ormocephalic and atraumatic Neck/C-Spine: COMMON NORMALS: full ROM and supple Chest: COMMONS NORMALS: normal inspection of the chest Resp: COMMON NORMALS: normal respiratory effort Extremity: NARRATIVE EXTREMITY EXAM: Bruising noted to left wrist and hand no obvious deformity Neuro: COMMON NORMALS: patient oriented x3, moves all extremities and no focal motor deficits Psych: COMMON NORMALS: mental status grossly normal, Normal thought process p resent and cooperative THOUGHT PROCESS: Normal thought process present Skin: COMMON NORMALS: no rashes or lesions noted and no wounds GENERAL SKIN EXAM: no rashes or lesions noted Procedures Orthopedic Joint Reduction Joint #1: Time Out Performed: Yes Side: left Joint Reduction Location: finger (thumb) Analgesia: nerve block (ring block) Local Anesthesia: bupivacaine 0.5% Amount of anesthesic used (mL): 8 Technique used: traction/counter-traction and direct manipulation Post-reduction neuro exam: intact Post-reduction vascular: intact Post Reduction X-Ray Obtained: Yes Post Reduction X-Ray Results: not reduced Splint Applied: Yes Patient Tolerated Procedure: well Course Vital Signs: Vital signs: Vital Signs Temperature 98.3 F 12/14/23 18:24 Pulse Rate 84 12/14/23 18:24 Respiratory Rate 18 12/14/23 18:24 Blood Pressure 144/85 12/14/23 18:24 Pulse Oximetry 98 12/14/23 18:24 Oxygen Delivery Me thod Room Air 12/14/23 18:24 MDM - Extremity (Nontraumatic) Medical Decision Making Patient presents here with wrist and hand contusion CT did show a dislocation to the left thumb this is likely chronic I did numb the thumb and attempted reduction no success is likely has a chronic dislocation also possible lunate ligament tear that is likely old as well did speak to orthopedist Dr. Tiwari will place in a volar splint and have him follow-up Medical Records I reviewed the patient's medical records. Lab Data Radiology Impressions Wrist X-Ray 12/14/23 18:25 IMPRESSION: Redemonstrated dislocation of the base of the thumb with small avulsion fracture. Hand X-Ray 12/14/23 20:04 IMPRESSION: 1. Stable avulsion fracture at the base of the 1st metacarpal with lateral dislocation of 1 shaft width and approximately 6 mm of override at the 1st CMC joint. 2. Stable degenerative changes in the left wrist and hand. 3. Mild soft tissue swelling around the 1st CMC joint. 4. Incidental/nonacute findings are listed in the report. Hand CT 12/14/23 20:09 IMPRESSION: Probable chronic dislocation phone with degenerative changes at the base of the thumb and a small bone fragment which may be an old avulsion fragment versus ligamentous calcification. Probable scapholunate ligament tear. All radiology interpretation(s) finalized by discharge Discharge Plan Discharge Patient Disposition: Home Clinical Impression: Contusion of hand, left Closed dislocation of left thumb Qualifiers: Encounter type: initial encounter Qualified Code(s): S63.105A - Unspecified dislocation of left thumb, initial encounter Prescriptions: No Action Benefiber Clear SF (dextrin) 3 gram/3.5 gram powder in packet 1.5 gm PO BID Rx Instructions: mix into at least 4 oz water or juice before administering Myrbetriq 50 mg tablet extended release 24 hr 50 mg PO Q24H MDD 50 duloxetine 30 mg capsule,delayed release(DR/EC) 30 mg PO BID aspirin [Adult Low Dose Aspirin] 81 mg tablet,delayed release (DR/EC) 81 mg PO QDAY Hold Instructions: Resume on 12/08/19. gabapentin 800 mg tablet 800 mg PO TID aripiprazole 5 mg tablet 5 mg PO QDAY montelukast 10 mg tablet 10 mg PO QDAY nitroglycerin [Nitrostat] 0.4 mg tablet, sublingual 0.4 mg SUBLINGUAL Q5M MDD 0.4 PRN (Reason: Angina) Qty: 30 2RF pantoprazole [Protonix] 40 mg tablet,delayed release (DR/EC) 40 mg PO DAILY Qty: 30 2RF isosorbide mononitrate 60 mg tablet extended release 24 hr 60 mg PO QAM Qty: 90 3RF metoprolol succinate 25 mg tablet extended release 24 hr 12.5 mg PO DAILY Qty: 45 3RF cholecalciferol (vitamin D3) [Vitamin D3] 25 mcg (1,000 unit) Capsule 1,000 unit PO DAILY [place] 5-325 mg tablet 1 tab PO Q6H PRN (Reason: pain) Qty: 28 0RF Pepcid AC 20 mg tablet 20 mg PO DAILY 30 Days Qty: 30 2RF Discharge Orders: Discharge ED (Routine); Ordered 12/14/23 Ordered By: Judd Souza Referrals: Juan Tiwari DO [Physician] - 4-7 days Emily Bucio DO [Referring] - 4-7 days Discharge Diet: Advance as tolerated Discharge Activity: Resume usual activity Patient Instructions: Contusion in Adults (ED), Finger Sprain (ED) Coding Level of Care Code ED Pneumatic Tester for Elissa Shepherd
[2023-12-14] MEDS: HYDROcodone-acetaminophen 5-325 mg Tablet 1 TAB PO (19:49)
[2023-12-14] MEDS: BUPivacaine 0.5% INJ 10 mL INJECTION (19:59)
--- NOTE | 2023-12-14 20:04 | XRR_ITS ---
PROCEDURE INFORMATION: Exam: XR Left Hand Exam date and time: 12/14/2023 8:06 PM Age: 63 years old Clinical indication: Injury or trauma; Other: Dislocation; Finger; Thumb; Patient HX: Check S/P reduction of left first digit. ; Additional info: Post reduction TECHNIQUE: Imaging protocol: Radiologic exam of the left hand. Views: 3 or more views. COMPARISON: CR ( EX, ) 12/14/2023 6:39 PM FINDINGS: Bones/joints: Stable avulsion fracture at the base of the 1st metacarpal with lateral dislocation of 1 shaft width and approximately 6 mm of override at the 1st CMC joint. Bones are diffusely osteopenic. Stable degenerative changes in the left wrist and hand. Soft tissues: Mild soft tissue swelling around the 1st CMC joint. No radiopaque foreign body. XR/XR hand LT 2V [id number] IMPRESSION: 1. Stable avulsion fracture at the base of the 1st metacarpal with lateral dislocation of 1 shaft width and approximately 6 mm of override at the 1st CMC joint. 2. Stable degenerative changes in the left wrist and hand. 3. Mild soft tissue swelling around the 1st CMC joint. 4. Incidental/nonacute findings are listed in the report.
--- NOTE | 2023-12-14 20:09 | CTR_ITS ---
PROCEDURE INFORMATION: Exam: CT Left Upper Extremity Without Contrast, Hand Exam date and time: 12/14/2023 8:17 PM Age: 63 years old Clinical indication: Injury or trauma; Finger; Left; Patient HX: Ortho requested assessment for thumb dislocation. Chronic vs acute. ; Additional info: Likely chronic thumb dislocation TECHNIQUE: Imaging protocol: Computed tomography of the left upper extremity without contrast. Exam focused on the hand. Radiation optimization: All CT scans at this facility use at least one of these dose optimization techniques: automated exposure control; mA and/or kV adjustment per patient size (includes targeted exams where dose is matched to clinical indication); or iterative reconstruction. COMPARISON: CR (UP EXM, ) 12/14/2023 8:06 PM RADIATION DOSE METRICS: Total DLP (mGy-cm): 732.49 FINDINGS: Bones/joints: There are chronic degenerative changes the base of the thumb with joint space narrowing, subchondral cystic resorption and mild spurring on the base of the 1st metacarpal. There is a calcified bone fragment near the base of the metacarpal which may be an old avulsion fragment versus ligamentous calcification. Alignment is normal. No acute fractures are seen. Incidental note is made of widening of the scapholunate joint which may be due to an old injury and ligamentous rupture. Soft tissues: There is edema throughout the soft tissues of the thenar eminence and fluid tracking in the carpal tunnel. There is also a small amount of air in the soft tissues of the hypothenar eminence. CT/CT hand LT wo con* [id number] IMPRESSION: Probable chronic dislocation phone with degenerative changes at the base of the thumb and a small bone fragment which may be an old avulsion fragment versus ligamentous calcification. Probable scapholunate ligament tear.
[2023-12-14 22:00] VITALS: BP 140/97; PULSE 81; RESP 16; O2SAT 98
--- NOTE | 2023-12-14 22:17 | PC.NURSE ---
pt d/c delayed due to needing a ride back to [facility].
--- NOTE | 2023-12-17 07:10 | DCPLANNER ---
Message sent to Ortho for follow up on Thumb injury
== END 2023-12-14 23:15 | disposition home or self-care (01) ==
PROVIDERS: Emergency Provider Emergency Medicine; PCP Family Medicine
DX: S62.232A Other displaced fracture of base of first metacarpal bone, left hand, initial encounter for closed fracture (principal); I10 Essential (primary) hypertension; Z79.899 Other long term (current) drug therapy; Z86.73 Personal history of transient ischemic attack (TIA), and cerebral infarction without residual deficits; W26.8XXA Contact with other sharp object(s), not elsewhere classified, initial encounter
CPT/HCPCS: 26645; 73110; 73120; 73130; 73200; 99284; J3490

== ENCOUNTER → 2024-01-23 09:18 | Outpatient (BNVA) | payer MEDICARE, MEDICAID, SELFPAY | PROVIDERS: PCP Family Medicine; Visit Provider Student in an Organized Health Care Education/Training Program | DX: M18.12 Unilateral primary osteoarthritis of first carpometacarpal joint, left hand; M65.4 Radial styloid tenosynovitis [de Quervain]; S69.92XA Unspecified injury of left wrist, hand and finger(s), initial encounter; W23.2XXA Caught, crushed, jammed or pinched between a moving and stationary object, initial encounter | CPT/HCPCS: 73130 ==

== ENCOUNTER 2024-01-23 10:12 | Outpatient (CLI) | payer MEDICARE, MEDICAID, SELFPAY | END 2024-01-23 10:13 | disposition home or self-care (01) | LOC: SPT 10:13 | PROVIDERS: PCP Family Medicine; Visit Provider Student in an Organized Health Care Education/Training Program | DX: Z46.89 Encounter for fitting and adjustment of other specified devices (principal); M18.12 Unilateral primary osteoarthritis of first carpometacarpal joint, left hand | CPT/HCPCS: 20600; 97760; J3301; J3490; L3924 ==

== ENCOUNTER → 2024-06-25 08:42 | Outpatient (BNVA) | payer MEDICARE, MEDICAID, SELFPAY | PROVIDERS: PCP Family Medicine; Visit Provider Student in an Organized Health Care Education/Training Program | DX: Z01.818 Encounter for other preprocedural examination (principal); M18.12 Unilateral primary osteoarthritis of first carpometacarpal joint, left hand | CPT/HCPCS: 36415; 80053; 81001; 85025; 99214 ==

== ENCOUNTER 2024-11-17 13:12 | Outpatient (CLI) | payer MEDICARE, MEDICAID, SELFPAY ==
--- NOTE | 2024-11-17 13:19 | MM_ITS ---
WS: [id number] BILATERAL 3D TOMOSYNTHESIS DIGITAL SCREENING MAMMOGRAPHY WITH CAD CLINICAL INFORMATION: SCREENING HISTORY: Screening mammogram. No current complaints. COMPARISON: 2018 TECHNIQUE: Bilateral CC and MLO views. FINDINGS: Scattered fibroglandular densities bilaterally. No suspicious focal mass, asymmetry, calcifications, or architectural distortion. No evidence of malignancy. MM/MM scr BI tomosynthesis [id number] IMPRESSION: DENSITY: There are scattered areas of fibroglandular density. BI-RADS: 1 - Negative. FOLLOW UP: 1 Year Follow-up Recommend return to annual screening mammography.
== END 2024-11-17 13:13 | disposition home or self-care (01) ==
LOC: RAD 13:14
PROVIDERS: PCP Family Medicine; Visit Provider Family Medicine
DX: Z12.31 Encounter for screening mammogram for malignant neoplasm of breast (principal); R92.323 Mammographic fibroglandular density, bilateral breasts
CPT/HCPCS: 77063; 77067

== ENCOUNTER → 2024-11-26 07:48 | Outpatient (BNVA) | payer MEDICARE, MEDICAID, SELFPAY | PROVIDERS: PCP Family Medicine; Visit Provider Physician Assistant | DX: M25.561 Pain in right knee (principal); M25.562 Pain in left knee; M17.0 Bilateral primary osteoarthritis of knee | CPT/HCPCS: 73560; 73565; 99213 ==

== ENCOUNTER → 2025-01-26 10:55 | Outpatient (BNVA) | payer OTHER, SELFPAY | PROVIDERS: PCP Family Medicine; Referring Provider Nurse Practitioner Family; Visit Provider Internal Medicine Cardiovascular Disease | DX: R07.9 Chest pain, unspecified (principal) | CPT/HCPCS: 93005 ==

== ENCOUNTER 2025-02-23 13:24 | Outpatient (CLI) | payer OTHER, SELFPAY | END 2025-02-23 13:25 | disposition home or self-care (01) | LOC: RAD 13:26 | PROVIDERS: PCP Family Medicine; Visit Provider Internal Medicine Cardiovascular Disease | DX: R06.02 Shortness of breath (principal) | CPT/HCPCS: 93306 ==